=== PATIENT | female | born 1965 | race Caucasian/White ===

== ENCOUNTER 2016-03-28 22:45 | Emergency (ER) | payer OTHER ==
[~2016-03-28] VITALS: Ht 162.6 cm; Wt 88.0 kg
[~2016-03-28 22:45] MED LIST: ALBUTEROL0.09 MG/A2 PO; PREDNISONE 20MG20 MG PO; ROBITUSSIN W/CO10 ML PO; VIBRAMYCIN 100100 MG PO
--- NOTE | 2016-03-28 23:32 | ED GI/GU/ABDOMINAL COMPLAINT ---
History of Present Illness General Chief Complaint: Abdominal Pain/Flank Pain Stated Complaint: SHARP RIGHT LOWER QUADRENT ABDOMINAL PAIN Source: patient, old records, EMS Exam Limitations: no limitations Vital Signs & Intake/Output Vital Signs & Intake/Output Vital Signs Date Time Temp Pulse Resp B/P Pulse O2 O2 Flow FiO2 Ox Delivery Rate 03/28 2318 Room Air 03/28 2248 97.7 58 18 172/74 100 Room Air ED Intake and Output 03/29 0000 03/28 1200 Intake Total Output Total Balance Patient 194 lb Weight Allergies Coded Allergies: NSAIDS (Non-Steroidal Anti-Inflamma (Severe, RESPIRATORY DISTRESS 03/28/16) amoxicillin (Severe, RASH 03/28/16) theophylline (Severe, RESPIRATORY 03/28/16) adhesive tape (Intermediate, RASH 03/28/16) erythromycin base (UNKNOWN 03/28/16) imipramine (UNKNOWN 03/28/16) phenobarbital (UNKNOWN 03/28/16) Reconcile Medications Albuterol (Albuterol Inhaler) 0.09 MG/Actuation AIDEN 2 PUFF PO Q6 PRN SOB Doxycycline (Vibramycin 100 MG Cap) 100 MG CAP 1 TAB PO BID INFN Prednisone 20 MG TAB 1 TAB PO DAILY BRONCHITIS TAKE WQITH FOOD IN THE AM Robitussin AC (Guaifenesin-Codeine Syrup) 10 ML UDC 2 TSP PO Q8 PRN COUGH Triage Note: BIBA FOR SUDDEN ONSET RLQ ABDOMINAL PAIN AT 2210 TONIGHT. PT STARTED TO EASE OFF BUT HAS NOW RETURNED. PT STATES THE PAIN IS SIMILAR TO WHEN SHE HAD OVARIAN CYST IN PAST. ALERT AND ORIENTED. IN NO ACUTE DISTRESS. NO RESP DISTRESS. Triage Nurses Notes Reviewed? yes LMP (ages 10-50): post menopausal ? n Is pt currently ? No Onset: Just prior to arrival Duration: minute(s):, constant, continues in ED Timing: recent history Quality/Severity: aching, cramping, severe Location: right lower quadrant Radiation: no radiation Activities at Onset: rest Prior Abdominal Problems: similar symptoms Past Sexual History: Unobtainable at this time Associated Symptoms: abdominal pain, nausea/vomiting HPI: Prior to admission with arrest patient complains of right lower quadrant pain described as crampy moderate to severe nonradiating associated with nausea similar to previous ovarian cyst pain. She denies fever chills chest pain cough shortness of breath vomiting diarrhea dysuria rash bleeding Past History Travel History Traveled to [place] past 21 day No Medical History Any Pertinent Medical History? see below for history Neurological: EPILEPSY Cardiovascular: hypertension, HEART MURMUR ?TRICUSPID VALVE PROBLEM Hepatic: cholecystitis Psychiatric: anxiety, depression Endocrine: diabetes Blood Disorders: NONE Cancer(s): NONE PEDIATRIC DENTAL HYGIENIST/Reproductive: OVARIAN CYST Pneumonia Vaccine: 07/27/11 Surgical History Surgical History: non-contributory Psychosocial History Who do you live with Spouse Services at Home None What is your primary language Ecuadorean Tobacco Use: Quit >30 days ago ETOH Use: denies use Illicit Drug Use: denies illicit drug use Family History Hx Contributory? No Review of Systems Review of Systems Constitutional: Reports: no symptoms. EENTM: Reports: no symptoms. Respiratory: Reports: no symptoms. Cardiovascular: Reports: no symptoms. GI: Reports: see HPI, abdominal pain, nausea. Genitourinary: Reports: no symptoms. Musculoskeletal: Reports: no symptoms. Skin: Reports: no symptoms. Neurological/Psychological: Reports: no symptoms. Hematologic/Endocrine: Reports: no symptoms. Immunologic/Allergic: Reports: no symptoms. All Other Systems: Reviewed and Negative Physical Exam Physical Exam General Appearance: well developed/nourished, alert, awake, anxious, moderate distress, obese Head: atraumatic, normal appearance Eyes: Bilateral: normal appearance, PERRL, EOMI, normal inspection. Ears, Nose, Throat, Mouth: hearing grossly normal, moist mucous membrane Neck: normal inspection, supple, full range of motion, normal alignment Respiratory: normal breath sounds, chest non-tender, no respiratory distress, quiet respiration, lungs clear Cardiovascular: regular rate/rhythm, normal peripheral pulses, norml femoral pulses equa Peripheral Pulses: 4+ carotid (R), 4+ carotid (L), 2+ radial (R), 2+ radial (L) Gastrointestinal: normal bowel sounds, soft, no organomegaly, tenderness (Mild right lower quadrant) Back: normal inspection, normal range of motion, no vertebral tenderness Extremities: normal range of motion, no ligament instability Neurologic/Psych: no motor/sensory deficits, awake, alert, oriented x 3, normal gait, normal mood/affect, cooperative extension agent II-XII nml as tested Skin: intact, normal color, warm/dry Core Measures ACS in differential dx? No Severe Sepsis Present: No Septic Shock Present: No Progress Differential Diagnosis: appendicitis, kidney stone, ovarian cyst, perforated viscous Plan of Care: Orders Procedure Date/time Status URINALYSIS 03/28 2321 Complete HIGH SENSITIVITY CRP 03/28 2321 Complete COMPREHENSIVE METABOLIC PANEL 03/28 2321 Complete CBC WITHOUT DIFFERENTIAL 03/28 2321 Complete Laboratory Tests 03/28/16 2336: Anion Gap 14, Estimated GFR > 60, BUN/Creatinine Ratio 22.5, Glucose 125 H, Calcium 10.0, Total Bilirubin 0.4, AST 21, ALT 20, Alkaline Phosphatase 61, C- React Prot High Sens 12.1 H, Total Protein 7.3, Albumin 4.4, Globulin 2.9, Albumin/Globulin Ratio 1.5, CBC w Diff NO MAN DIFF REQ, RBC 4.36, MCV 81.7, MCH 26.6 L, RDW 14.9 H, MPV 10.7 H, Gran % 67.6, Lymphocytes % 24.9, Monocytes % 6.1, Eosinophils % 0.8, Basophils % 0.6, Absolute Granulocytes 8.1 H, Absolute Lymphocytes 3.0, Absolute Monocytes 0.7 H, Absolute Eosinophils 0.1, Absolute Basophils 0.1, PUBS MCHC 32.5 L, Urine Color YEL, Urine Clarity CLEAR, Urine pH 6.5, Ur Specific [place] 1.010, Urine Protein NEG, Urine Ketones NEG, Urine Nitrite NEG, Urine Bilirubin NEG, Urine Urobilinogen 0.2, Ur Leukocyte Esterase NEG, Ur Microscopic EXAM NOT REQUIRED, Urine Hemoglobin NEG, Urine Glucose NEG Initial ED EKG: none Departure Departure Time of Disposition: 323 Disposition: HOME OR SELF CARE Condition: Stable Clinical Impression Primary Impression: Abdominal pain Qualifiers: Abdominal location: lower abdomen, unspecified Qualified Code: R10.30 - Lower abdominal pain, unspecified Secondary Impressions: Ovarian cyst Referrals: ANA CHOUDHARY APRN (PCP) Departure Forms: Customer Survey General Discharge Information Prescriptions: Current Visit Scripts Ondansetron (Zofran Odt) 1 TAB SL TID PRN nausea #15 TAB Oxycodone HCl/Acetaminophen (Percocet 5-325 MG Tablet) 1-2 TAB PO Q6P PRN severe pain #15 TAB
[2016-03-28 23:48] LABS: ABSOLUTE BASOPHIL COUNT 0.1 /CUMM (0.0-0.2); ABSOLUTE EOSINOPHIL COUNT 0.1 /CUMM (0.0-0.7); ABSOLUTE GRANULOCYTE CT 8.1 /CUMM (1.4-6.5); ABSOLUTE MONOCYTE COUNT 0.7 /CUMM (0.10-0.60); BASOPHIL % 0.6 % (0.0-2.0); EOSINOPHIL % 0.8 % (0-5); GRANULOCYTE % 67.6 % (42.2-75.2); HEMATOCRIT 35.6 % (37-47); MEAN CORPUSCULAR HGB 26.6 PG (27.0-31.0); MEAN CORPUSCULAR HGB CONC 32.5 G/DL (33.0-37.0); MEAN CORPUSCULAR VOLUME 81.7 FL (81.0-99.0); MEAN PLATELET VOLUME 10.7 FL (7.4-10.4); PLATELET COUNT 211 /CUMM (130-400); RBC DISTRIBUTION WIDTH 14.9 % (11.5-14.5); RED BLOOD CELL CT 4.36 /CUMM (4.20-5.40)
[2016-03-29] MEDS ORDERED: PERCOCET 5-3251 EACH PO (03:26)
[2016-03-29] MEDS ORDERED: ZOFRAN ODT4 M1 SL (03:26)
[2016-03-29 03:30] VITALS: BP 141/69
== END 2016-03-29 03:45 ==
LOC: ERH 22:45
PROVIDERS: Emergency Medicine
DX: R10.31 Right lower quadrant pain (principal)
CPT/HCPCS: 81003; 96374; 96375; J0131; J2405